=== PATIENT | male | born 1940 | race Caucasian/White ===

== ENCOUNTER 2020-08-11 19:09 | Inpatient (IN) | payer MEDICARE ==
[~2020-08-11] VITALS: Ht 172.7 cm; Wt 91.6 kg
[~2020-08-11 19:09] MED LIST: AMIODARONE HCL200 MG PO; ATORVASTATIN CA20 MG PO; ATROVENT30 ML HHN; Aspirin PO; CINNAMON500 MG PO; CLOPIDOGREL75 MG PO; CORDARONE200 MG PO; COREG CR10 MG PO; CRESTOR10 MG PO; DICLOFENAC SODI75 MG PO; DONEPEZIL HCL10 MG PO; FEOSOL325 MG PO; FERROUS SULFAT325 MG PO; FINASTERIDE5 MG PO; GABAPENTIN300 MG PO; LEVAQUIN500 MG PO; LEXAPRO10 MG PO; MEDROL4 MG/DOSE-; MS CONTIN15 MG PO; MULTIVITAMINS1 EAC7 PO; NAMENDA10 MG PO; NORCO 7.5-3251 EACH PO; PREDNISONE20 MG PO; PROAIR HFA INH8.5 GM; PROAIR HFA INH8.5 GM HHN; PROAIR HFA INH8.5 GM INH; SERTRALINE HCL100 MG PO; SYMBICORT 16010.2 GM; TAMSULOSIN HCL0.4 MG PO; TRAZODONE HCL150 MG PO; TRAZODONE HCL50 MG PO; VALIUM5 MG PO; ZITHROMAX250 MG PO; ZOLOFT50 MG PO; [UNRECOGNIZED DRUG - CODE] INH
[2020-08-11] MEDS: NALOXONE HCL INJ 0.4 MG/ML AMP IV PRN (19:39)
[2020-08-11 19:40] LABS: BASOPHILS % 0.1 % (0.0-1.0); EOSINOPHILS % 0.1 % (0.0-6.0); HEMATOCRIT 43.4 % (38.2-49.6); HEMOGLOBIN 13.6 g/dL (14.0-18.0); LYMPHOCYTES # (AUTO) 0.6 (1.0-3.2); LYMPHOCYTES % 5.5 % (18.0-39.1); MEAN CORPUSCULAR HEMOGLOBIN 27.8 pg (28-32); MEAN CORPUSCULAR HGB CONC 31.3 g/dL (31-35); MEAN CORPUSCULAR VOLUME 88.6 fL (81-99); MONOCYTES # (AUTO) 0.9 (0.2-0.8); MONOCYTES % 9.1 % (4.4-11.3); NEUTROPHILS # (AUTO) 8.5 (2.1-6.9); NEUTROPHILS % 84.8 % (38.7-80.0); PLATELET COUNT 351 x10e3/uL (140-360); RED CELL DISTRIBUTION WIDTH 14.6 % (11.7-14.4)
[2020-08-11] MEDS ORDERED: NALOXONE HCL INJ 0.4 MG/ML AMP ONE (19:45)
[2020-08-11 20:02] LABS: ALBUMIN 2.9 g/dL (3.5-5.0); ALBUMIN/GLOBULIN RATIO 0.6 (0.8-2.0); CREATININE, SERUM 1.2 mg/dL (0.72-1.25)
[2020-08-11 20:03] LABS: CALCIUM 16.8 mg/dL (8.4-10.2)
[2020-08-11 20:08] LABS: CREATINE KINASE MB 1.5 ng/mL (0-5.0)
[2020-08-11] MEDS ORDERED: SODIUM CHLORIDE 0.9% 1000ML 1,000 ML IV SCH ×2 (20:15)
[2020-08-11 20:23] LABS: CLARITY,URINE CLEAR (CLEAR); COLOR,URINE YELLOW (YELLOW); LEUKOCYTE ESTERASE ,URINE NEGATIVE (NEGATIVE)
[2020-08-11 20:24] LABS: BILIRUBIN,URINE NEGATIVE (NEGATIVE); KETONES,URINE NEGATIVE (NEGATIVE); NITRITE,URINE NEGATIVE (NEGATIVE); PROTEIN,URINE DIPSTICK NEGATIVE (NEGATIVE); URINE UROBILINOGEN 0.2 mg/dL (0.2 - 1)
[2020-08-11 20:27] LABS: AMPHETAMINES SCREEN,URINE NEGATIVE (NEGATIVE); BENZODIAZEPINES SCREEN,URINE POSITIVE (NEGATIVE); PHENCYCLIDINE SCREEN,URINE NEGATIVE (NEGATIVE)
[2020-08-11] MEDS ORDERED: SODIUM CHLORIDE 0.9% 1000ML 1,000 ML ONE (20:29)
[2020-08-11] MEDS ORDERED: SODIUM CHLORIDE 0.9% 1000ML 1,000 ML IV ONE (20:30)
[2020-08-11 20:40] LABS: AMORPHOUS SEDIMENT,URINE MODERATE (FEW); BACTERIA,URINE MODERATE /HPF; RBC,URINE 0-5 /HPF (0-5)
[2020-08-11 21:00] VITALS: BP 139/89
[2020-08-11] MEDS ORDERED: CALCITONIN SALMON 400 IU/2ML VIAL SC ONE (21:15)
[2020-08-11 22:12] VITALS: BP 139/89
[2020-08-12] VITALS (7 sets, daily range): BP systolic 96–150; BP diastolic 49–86
[2020-08-12] MEDS: KCL 20MEQ/.9 SOD CHL 1,000 ML IV SCH ×2 (00:02→06:15)
[2020-08-12] MEDS ORDERED: CEFEPIME 1GM/NS 0.9% 50 ML 50 ML IV STA (03:07)
[2020-08-12] MEDS: VANCOMYCIN 1GM/NS 250 ML 250 ML IV SCH (04:11)
[2020-08-12 04:46] LABS: BASOPHILS % 0.2 % (0.0-1.0); HEMATOCRIT 41.4 % (38.2-49.6); HEMOGLOBIN 13.1 g/dL (14.0-18.0); LYMPHOCYTES # (AUTO) 0.3 (1.0-3.2); LYMPHOCYTES % 3.4 % (18.0-39.1); MEAN CORPUSCULAR HEMOGLOBIN 28.2 pg (28-32); MEAN CORPUSCULAR HGB CONC 31.6 g/dL (31-35); MONOCYTES % 10.7 % (4.4-11.3); NEUTROPHILS # (AUTO) 7.7 (2.1-6.9); NEUTROPHILS % 85.5 % (38.7-80.0); PLATELET COUNT 346 x10e3/uL (140-360); RED BLOOD COUNT 4.65 x10e6/uL (4.3-5.7); RED CELL DISTRIBUTION WIDTH 14.6 % (11.7-14.4)
[2020-08-12 05:11] LABS: ALBUMIN 2.3 g/dL (3.5-5.0); ALBUMIN/GLOBULIN RATIO 0.5 (0.8-2.0); ANION GAP 11.6 mmol/L (8-16); CREATININE, SERUM 1.24 mg/dL (0.72-1.25)
[2020-08-12] MEDS ORDERED: IOPAMIDOL 370 MG/ML 200 ML INFUS..BTL INJ ONE (05:49)
[2020-08-12] MEDS ORDERED: SODIUM CHLORIDE 0.9% 50ML 50 ML ONE (05:50)
[2020-08-12 06:42] LABS: CALCIUM 14.9 mg/dL (8.4-10.2); POTASSIUM 2.6 mmol/L (3.5-5.1)
[2020-08-12] MEDS: NALOXONE HCL INJ 0.4 MG/ML AMP IV PRN (09:44)
[2020-08-12 09:56] LABS: ABG HCO3 37 mmol/L (22-26); ABG PCO2 47 mmHg (35-45); ABG PH 7.51 (7.35-7.45); ABG PO2 90 mmHg (80-105); ABG TCO2 38
[2020-08-12] MEDS ORDERED: POTASSIUM CHLORIDE 20MEQ/100ML 100 ML IV ONE ×2 (10:10→12:10)
[2020-08-12] MEDS ORDERED: DEXTROSE 5% 1,000 ML IV ONE (11:45)
[2020-08-12 12:20] LABS: FREE THYROXINE INDEX 1.7598 (1.4-3.8); THYROID STIMULATING HORMONE 0.496 uIU/mL (0.350-4.940)
[2020-08-12] MEDS ORDERED: POTASSIUM CHLORIDE 20 MEQ in DEXTROSE 5% 1,000 ML IV SCH (13:45)
[2020-08-12] MEDS ORDERED: MAGNESIUM SULFATE 2GM/50ML 50 ML IV ONE (14:30)
[2020-08-12] MEDS: CALCITONIN SALMON 400 IU/2ML VIAL SC SCH (15:53)
[2020-08-12] MEDS: POTASSIUM CHLORIDE 20 MEQ in DEXTROSE 5% 1,000 ML IV SCH (17:15)
[2020-08-13] VITALS (8 sets, daily range): BP systolic 98–124; BP diastolic 59–80
[2020-08-13] MEDS: VANCOMYCIN 1GM/NS 250 ML 250 ML IV SCH (03:21)
[2020-08-13] MEDS: POTASSIUM CHLORIDE 20 MEQ in DEXTROSE 5% 1,000 ML IV SCH ×4 (03:22→23:58)
[2020-08-13 10:24] LABS: ANION GAP 10.2 mmol/L (8-16); BLOOD UREA NITROGEN 36 mg/dL (7-26); BUN/CREATININE RATIO 31 (6-25); CARBON DIOXIDE 32 mmol/L (22-29); CHLORIDE 109 mmol/L (98-107); CREATININE, SERUM 1.16 mg/dL (0.72-1.25); EST GLOMERULAR FILTRATION RATE > 60 ML/MIN (60-); GLUCOSE 151 mg/dL (74-118); POTASSIUM 3.2 mmol/L (3.5-5.1); SODIUM 148 mmol/L (136-145)
[2020-08-13 10:30] LABS: CALCIUM 13.9 mg/dL (8.4-10.2)
[2020-08-13] MEDS: CALCITONIN SALMON 400 IU/2ML VIAL SC SCH (11:35)
[2020-08-13] MEDS ORDERED: POTASSIUM CHLORIDE 20MEQ/100ML 100 ML IV ONE (15:45)
[2020-08-13] MEDS ORDERED: PAMIDRONATE DISODIUM 90 MG in SODIUM CHLORIDE 0.9% 1000ML 1,000 ML IV ONE (15:45)
[2020-08-13] MEDS ORDERED: POTASSIUM CHLORIDE 20MEQ/100ML 200 ML IV ONE (15:45)
[2020-08-13] MEDS ORDERED: DEXTROSE 5% 1,000 ML IV ONE (15:45)
[2020-08-13] MEDS ORDERED: POTASSIUM CHLORIDE 10MEQ/100ML 200 ML IV ONE (18:00)
[2020-08-14] VITALS (7 sets, daily range): BP systolic 101–137; BP diastolic 73–90
[2020-08-14] MEDS: VANCOMYCIN 1GM/NS 250 ML 250 ML IV SCH (03:07)
[2020-08-14 05:18] LABS: BASOPHILS % 0.2 % (0.0-1.0); HEMATOCRIT 33.8 % (38.2-49.6); HEMOGLOBIN 10.6 g/dL (14.0-18.0); LYMPHOCYTES # (AUTO) 0.8 (1.0-3.2); LYMPHOCYTES % 7.7 % (18.0-39.1); MEAN CORPUSCULAR HEMOGLOBIN 27.9 pg (28-32); MEAN CORPUSCULAR HGB CONC 31.4 g/dL (31-35); MEAN CORPUSCULAR VOLUME 88.9 fL (81-99); MONOCYTES # (AUTO) 0.6 (0.2-0.8); MONOCYTES % 5.3 % (4.4-11.3); NEUTROPHILS % 85.8 % (38.7-80.0); PLATELET COUNT 224 x10e3/uL (140-360); RED CELL DISTRIBUTION WIDTH 14.9 % (11.7-14.4)
[2020-08-14 05:39] LABS: ALANINE AMINOTRANSFERASE 31 IU/L (0-55); ALBUMIN 1.9 g/dL (3.5-5.0); ALBUMIN/GLOBULIN RATIO 0.5 (0.8-2.0); ALKALINE PHOSPHATASE 92 IU/L (40-150); ANION GAP 9.2 mmol/L (8-16); BLOOD UREA NITROGEN 30 mg/dL (7-26); BUN/CREATININE RATIO 33 (6-25); CARBON DIOXIDE 30 mmol/L (22-29); CHLORIDE 108 mmol/L (98-107); CREATININE, SERUM 0.91 mg/dL (0.72-1.25); EST GLOMERULAR FILTRATION RATE > 60 ML/MIN (60-); GLUCOSE 128 mg/dL (74-118); MAGNESIUM 1.3 MG/DL (1.3-2.1); PHOSPHORUS 1.8 MG/DL (2.3-4.7); POTASSIUM 3.2 mmol/L (3.5-5.1); SODIUM 144 mmol/L (136-145)
[2020-08-14] MEDS: POTASSIUM CHLORIDE 20 MEQ in DEXTROSE 5% 1,000 ML IV SCH ×2 (08:12→14:30)
[2020-08-14] MEDS: CALCITONIN SALMON 400 IU/2ML VIAL SC SCH (08:49)
[2020-08-14] MEDS ORDERED: POTASSIUM CHLORIDE 10MEQ EA PO SCH (09:00)
[2020-08-14] MEDS ORDERED: MAGNESIUM SULFATE 2GM/50ML 50 ML IV ONE (17:00)
[2020-08-14] MEDS ORDERED: SODIUM CHLORIDE IV ONE (17:30)
[2020-08-14] MEDS ORDERED: POTASSIUM PHOSPHATE IV ONE (17:30)
== END 2020-08-14 19:00 | disposition hospice, home (50) | DRG 640 ==
LOC: ER 19:52 → ERHOLD 20:19 → IMCU 21:40
DX: E83.52 Hypercalcemia (principal); J18.9 Pneumonia, unspecified organism; N17.9 Acute kidney failure, unspecified; E87.1 Hypo-osmolality and hyponatremia; I48.20 Chronic atrial fibrillation, unspecified; Z66 Do not resuscitate; J44.9 Chronic obstructive pulmonary disease, unspecified; Z95.5 Presence of coronary angioplasty implant and graft; F03.90 Unspecified dementia, unspecified severity, without behavioral disturbance, psychotic disturbance, mood disturbance, and anxiety; Z79.01 Long term (current) use of anticoagulants; Z20.828 Contact with and (suspected) exposure to other viral communicable diseases
CPT/HCPCS: 36415; 36600; 51700; 71045; 71260; 80048; 80053; 80202; 80307; 81001; 82550; 82553; 82805; 83605; 83615; 83735; 83970; 84100; 84436; 84443; 84479; 84484; 85025; 87040; 93005; 96360; 99284; J0692; J2310; J2430; J3370; J3475; J3480; J7030; J7050; J7070; Q9967; U0002